=== PATIENT | female | born 1995 | race Caucasian/White ===

== ENCOUNTER 2017-08-29 21:06 | Emergency (ER) | payer MEDICAID ==
--- NOTE | 2017-08-29 21:46 | ED Physician Chart ---
ED Chief Complaint/HPI - Patient Information Date Seen:: 08/29/17 Time Seen:: 21:37 Chief Complaint:: Abdominal pain for 1.5 yrs worsening for 3 days History of Present Illness:: 21 yo female had abdominal pain for 1.5 yrs worsened for 3 days. The pain is located at umbilical area, crampy pain, intermittent, very nausea, lightheaded, loose stool, loss of appetite. EGD and Colonoscopy were planned but not done yet due to recent move from [place] to [place]. Ultrasound and CT abdomen 2 months ago were negative. GI cocktail helped. The patient is taking Xanax 1.5mg qhs for sleep. She also takes Pepto-Bismol 2-15 tabs daily for heartburn and acid reflux. She denies hematemesis. The patient is trying to establish a local PCP and GI specialist. Allergies:: Allergies Allergy/AdvReac Type Severity Reaction Status Date / Time phenazopyridine Allergy NAUSEA & Verified 08/29/17 21:26 [From Pyridium] VOMITING Vitals:: Vital Signs - 8 hr 08/29/17 21:10 Temp 98.1 F HR 89 RR 20 BP 161/123 O2 Sat % 97 ED Review of Systems - Review of Systems General/Constitutional: No fever, No chills Skin: No skin lesions Head: Headache Eyes: No loss of vision ENT: No nasal drainage Neck: No neck pain Cardio Vascular: No chest pain Pulmonary: No SOB GI: Nausea, Vomiting, Pain, No hematochezia, No constipation G/U: No dysuria Musculoskeletal: No bone or joint pain Psychiatric: Anxiety ED Past Medical History - Past Medical History Past Medical History: PUD/GERD, Other (gastric ulcer, migraine) Social History: Non Smoker, No Alcohol, No Drug Use Surgical History: other (Tonsilectomy) Family Medical History - Family Member Mother Ethnicity: Non- Living Status: Still Living Hx Family Cancer: Yes (BREAST) ED Physical Exam - Physical Examination General/Constitutional: Awake, Alert Head: Atraumatic Eyes: PERRL, EOMI Skin: No skin lesions ENMT: External ears, nose nl Neck: Full ROM w/o pain Respiratory: Clear to Auscultation, No Wheeze/Rhonchi/Rales Cardio Vascular: RRR, No murmur, gallop, rubs, NL S1 S2 GI: Nondistended, No mass/bruits Other GI comments:: Epigastric tenderness, periumbilical tenderness Extremities: normal strength in all extremities Neuro/Psych: No focal deficits ED Labs/Radiology/EKG Results - Radiology Results Results: KUB: normal ED Assessment - Assessment General Assessment: Abdominal pain GERD Critical Care Time: 30 min Excludes all billable procedures: Yes This condition life threatening/high prob of deterioration: No Assessment/Comments:: CBC, CMP, UA KUB Pantoprazole Reglan Zofran Discharge home with Zofran Follow up PCP and GI ED Septic Shock - . Is Septic Shock (SBP<90, OR Lactate>4 mmol\L) present?: No - <6hrs of presentation: Vital Signs: Vital Signs - 8 hr /14/17 21:10 Temp 98.1 F HR 89 RR 20 BP 161/123 O2 Sat % 97 ED Discharge Plan - Patient Disposition Admit/Discharge/Transfer: PT DISCHARGED HOME Prescriptions: Ondansetron [Zofran Odt] 4 mg PO Q12H PRN #10 odt PRN Reason: Nausea / Vomiting Instructions: Abdominal Pain, [id number], Gastroesophageal Reflux Disease, Adult Additional Instructions: control any pain with tylenol or motrin. follow up with your regular doctor in 1 -2 days if not feeling any better.
[2017-08-29] MEDS ORDERED: Metoclopramide 5 mg/mL 2mL Vial IVP STA (21:53)
[2017-08-29] MEDS ORDERED: Metoclopramide 5 mg/mL 2mL Vial ONE (22:12)
[2017-08-29 22:13] LABS: % BASOPHILS 0.5 % (0.0-2.0); % LYMPHOCYTES 26.9 % (20.0-50.0); % NEUTROPHILS 64.6 % (40.0-80.0); HEMOGLOBIN 14.6 gm/dL (12-16); MEAN CELL VOLUME 83.3 fl (81-100); MEAN CORPUSCULAR HEMOGLOBIN 27.5 pg (27.0-31.0); MEAN CORPUSCULAR HGB CONC 33.1 pg (28.0-36.0); MEAN PLATELET VOLUME 7.6 fl; NEUTROPHILE ABSOLUTE 6.5 Th/cmm (1.8-8.0); PLATELET COUNT 263 Th/cmm (150-400); RED BLOOD COUNT 5.29 Mil/cmm (3.80-5.10); RED CELL DISTRIBUTION WIDTH 12.3 % (11.5-20.0)
[2017-08-29 22:30] LABS: ALB/GLOB RATIO 1.3 (1.0-1.8); ALKALINE PHOSPHATASE 73 U/L (34-104); ANION GAP 10.8 (7.0-16.0); BILIRUBIN,TOTAL 0.4 mg/dL (0.3-1.0); BUN - UREA NITROGEN 13 mg/dL (7-25); BUN/CREATININE RATIO 18.6; CALCIUM SERUM 9.7 mg/dL (8.6-10.3); CARBON DIOXIDE 24.1 mEq/L (21.0-31.0); CHLORIDE 102 mEq/L (98-107); CREATININE - SERUM 0.7 mg/dL (0.6-1.2); GLUCOSE 97 mg/dL (70-105); POTASSIUM SERUM 3.9 mEq/L (3.5-5.1); SGOT 18 U/L (13-39); SGPT/ALT 34 U/L (7-52); SODIUM SERUM 133 mEq/L (136-145)
[2017-08-29 23:01] LABS: URINE BILIRUBIN NEGATIVE (NEGATIVE); URINE BLOOD TRACE (NEGATIVE); URINE GLUCOSE (UA) NEGATIVE (NEGATIVE); URINE KETONE NEGATIVE (NEGATIVE); URINE PROTEIN NEGATIVE (NEGATIVE); URINE UROBILINOGEN 0.2 E.U./dL (0.2 - 1.0)
[2017-08-29 23:06] LABS: URINE COLOR YELLOW
[2017-08-29 23:07] LABS: URINE BACTERIA NONE SEEN /hpf (NONE SEEN); URINE EPITHELIAL CELLS NONE SEEN /lpf (FEW); URINE RBC 0-2 /hpf (0-5); URINE WBC NONE SEEN /hpf (0-5)
[2017-08-29] MEDS ORDERED: Aluminum Hydroxide 30 mL UDC PO ONE (23:28)
--- NOTE | 2017-08-30 07:40 | Diagnostic Imaging Report ---
Exam: KUB of the abdomen. HISTORY: Abdominal pain Findings: Frontal examination the abdomen reviewed. The study demonstrates nonspecific bowel gas pattern. Bony structures intact. No abnormal masses or calcifications are noted. IMPRESSION: Normal examination of the abdomen.
== END 2017-08-29 23:45 | disposition home or self-care (01) ==
LOC: ER 21:06
DX: R10.9 Unspecified abdominal pain (principal); K21.9 Gastro-esophageal reflux disease without esophagitis; Z87.11 Personal history of peptic ulcer disease
CPT/HCPCS: 99291; 96374; 96375; 74000; 36415; 85025; 81001; 81025; 80053; C9113; Q0162; J2765; Z7502